=== PATIENT | male | born 1955 | race Caucasian/White ===

== ENCOUNTER 2022-06-09 16:00 | Emergency (ER) | payer MEDICARE, MEDICAID, SELFPAY ==
[2022-06-09 16:13] VITALS: BP 149/85; PULSE 64; RESP 18; TEMP 36.1; O2SAT 99
--- NOTE | 2022-06-09 16:24 | ED.GENADULT ---
HPI - General Adult General Chief complaint: Neck Pain/Injury Stated complaint: Pain from muscle in neck Source: patient and RN notes reviewed History of Present Illness HPI narrative: 67-year-old male presents to urgent care with complaints of left posterior/lateral neck spasms. Patient states his 1st episode was approximately 2 weeks ago which resulted in a sore neck muscle. Pt states the pain is radiating up into his head. Patient states it happened again a few days ago again today. pt states he is fearful to move his neck b/c of pain. Pt denies any left shoulder or arm pain. Denies any numbness, tingling, fevers, chills, vomiting, chest pain, or shortness of breath. Patient is taking ibuprofen and Tylenol at home with minimal relief. Related Data Home Medications Medication Instructions Recorded Confirmed apixaban 5 mg tablet (Eliquis) mg 06/09/22 bupropion HCl 300 mg 24 hr tablet, mg PO 06/09/22 extended release buspirone 10 mg tablet mg 06/09/22 carvedilol 25 mg tablet mg 06/09/22 duloxetine 60 mg capsule,delayed mg PO 06/09/22 release finasteride 5 mg tablet mg 06/09/22 hydroxyzine pamoate 25 mg capsule mg 06/09/22 ivabradine 5 mg tablet (Corlanor) mg 06/09/22 mirtazapine 30 mg tablet mg 06/09/22 terbinafine HCl 250 mg tablet mg 06/09/22 Allergies Allergy/AdvReac Type Severity Reaction Status Date / Time No Known Allergies Allergy Unverified 06/09/22 16:19 Review of Systems Review of Systems: Pertinent positives and pertinent negatives per HPI. PMFSH Comments At the time of my signature, I reviewed and agree with the nursing past medical, surgical, social, and family history. There is no relevant family history pertinent to the patient complaint. Exam Narrative: GENERAL: This is a well-nourished, well-developed patient, in no apparent distress. HEAD: normocephalic, atraumatic. EYES: PERRL. Sclera clear/white. Vision is grossly intact. EARS: External ears normal, auditory canals clear and without drainage, TMs normal without perforation. Hearing grossly intact. NOSE: External nose normal with no obvious nasal discharge, nares without redness, no rhinorrhea. THROAT: Mucous membranes moist, posterior pharynx clear. NECK: Neck supple, non-tender without lymphadenopathy, masses or thyromegaly. Stiff neck. Pt has full ROM with neck but is hesitant with movement due to fear of pain. CARDIOVASCULAR: Regular rate and rhythm without murmurs, gallops, or rubs. RESPIRATORY: Clear to auscultation. Breath sounds equal bilaterally. No wheezes, rales, or rhonchi. GASTROINTESTINAL: Abdomen soft, non-tender, nondistended. Bowel sounds are active. No hepato-splenomegaly, or palpable masses. No guarding. SKIN: warm, intact with no suspicious lesions or rash, good texture and turgor. NEURO: awake, alert, and oriented to person, place and time. There were no obvious focal neurologic abnormalities. EXTREMITIES: No clubbing, cyanosis, or edema. No joint tenderness, effusion, or edema noted. Course Course Level of Care: Express Care Visit Vital Signs Vital signs: Vital Signs Temperature 97 F L 06/09/22 16:13 Pulse Rate 64 06/09/22 16:13 Respiratory Rate 18 06/09/22 16:13 Blood Pressure 149/85 H 06/09/22 16:13 Pulse Oximetry 99 06/09/22 16:13 Oxygen Delivery Room Air 06/09/22 16:13 Temperature 97 F L 06/09/22 16:13 Pulse Rate 64 06/09/22 16:13 Respiratory Rate 18 06/09/22 16:13 Blood Pressure 149/85 H 06/09/22 16:13 Pulse Oximetry 99 06/09/22 16:13 Oxygen Delivery Room Air 06/09/22 16:13 Reviewed Medical Decision Making MDM Narrative Medical decision making narrative: Drink plenty of water at home. May take 600 mg of ibuprofen with food every 6 hours if needed and 1,000 mg of Tylenol if needed. If you develop any new or worsening symptoms, go to the ER. Differential Diagnosis Differential Diagnosis: cervical strain, muscle spasm, cervical radiculopathy Vital Sig
== END 2022-06-09 16:40 | disposition home or self-care (01) ==
PROVIDERS: Emergency Provider Nurse Practitioner Family; PCP Internal Medicine
DX: M62.838 Other muscle spasm (principal); N40.0 Benign prostatic hyperplasia without lower urinary tract symptoms; Z86.73 Personal history of transient ischemic attack (TIA), and cerebral infarction without residual deficits
CPT/HCPCS: 99203; G0463